=== PATIENT | female | born 1980 | race Caucasian/White ===

== ENCOUNTER 2016-12-20 09:42 | Emergency (ER) | payer OTHER ==
[2016-12-20 09:55] VITALS: BP 116/67; PULSE 70; TEMP 98.3; BMI 28.1
--- NOTE | 2016-12-20 10:59 | PDOC ---
History of Present Illness - General Chief Complaint: Toothache Stated Complaint: ALLERGIC RXN Time Seen by Provider: 12/20/16 10:37 History Source: Patient Exam Limitations: No Limitations - History of Present Illness Initial Comments: 12/20/16 11:05 Chief complaint: Patient wants sutures removed from extraction left upper tooth History of present illness: Patient is a 36-year-old female with no significant medical history here today requesting that sutures be removed from an extraction site at tooth #12 due to irritation of area and tenderness. She reports having the extraction done on with Dr. Timmons, she is to call him to go see him today however he is on vacation. Patient reports taking ibuprofen however she reports it did not help and wants the sutures removed. Patient offered pain medication here does not want. She denies any fever, she denies any chance of . Timing/Duration: getting worse Severity: moderate Associated Symptoms: reports: other (left upper gum area site of extraction from 12/15/16) Past History - Past Medical History Allergies/Adverse Reactions: Allergies Allergy/AdvReac Type Severity Reaction Status Date / Time Penicillins Allergy Verified 12/20/16 09:52 Home Medications: Ambulatory Orders Amoxicillin - [Amoxicillin 500mg Capsule -] 500 mg PO BID 12/20/16 Suicide Attempt (Hx): No Other medical history: denies - Immunization History Immunization Up to Date: Yes - Psycho/Social/Smoking Cessation Hx Anxiety: No Suicidal Ideation: No Smoking History: Current every day smoker Have you smoked in the past 12 months: Yes Number of Cigarettes Smoked Daily: 10 Information on smoking cessation initiated: No Hx Alcohol Use: No Drug/Substance Use Hx: No Substance Use Type: None Review of Systems - Review of Systems Able to Perform ROS?: Yes Constitutional: No: Symptoms Reported HEENTM: Yes: Dental Problems (tooth # [address]) Respiratory: No: Symptoms reported Cardiac (ROS): No: Symptoms Reported ABD/GI: No: Symptoms Reported Musculoskeletal: No: Symptoms Reported Integumentary: No: Symptoms Reported *Physical Exam - Vital Signs Last Vital Signs Temp Pulse Resp BP Pulse Ox 98.3 F 70 20 116/67 99 12/20/16 09:52 12/20/16 09:52 12/20/16 09:52 12/20/16 09:52 12/20/16 09:52 - Physical Exam General Appearance: Yes: Appropriately Dressed HEENT: positive: TMs Normal, Other (tooth extraction tooth # [address], with slight erythema of gum, minimal edema). negative: Pharyngeal Erythema, Tonsillar Exudate, Tonsillar Erythema Neck: negative: Lymphadenopathy (R), Lymphadenopathy (L) Respiratory/Chest: positive: Lungs Clear, Normal Breath Sounds. negative: Chest Tender, Respiratory Distress Cardiovascular: positive: Regular Rhythm, Regular Rate, S1, S2 Integumentary: positive: Normal Color Medical Decision Making - Medical Decision Making 12/20/16 11:08 Patient is a 36-year-old female with no significant medical history here today requesting that sutures be removed from an extraction site at tooth #12 due to irritation of area and tenderness. She reports having the extraction done on with Dr. Timmons, she is to call him to go see him today however he is on vacation. Patient reports taking ibuprofen however she reports it did not help and wants the sutures removed. Patient offered pain medication here does not want. She denies any fever, she denies any chance of . Patient is on amoxcillin does not appear to be having any reaction to it was ordered by her dentist. irritation of suture line extraction site tooth # 12 PLAN: pt. does not want pain medication follow up with dentist 12/20/16 11:09 *DC/Admit/Observation/Transfer Diagnosis at time of Disposition: Gum inflammation, Pain, dental - Discharge Dispostion Disposition: HOME Condition at time of disposition: Stable - Patient Instructions Additional Instructions: Follow Up with a dentist as soon as possible you may call [phone] dental clinic Follow up here if symptoms worsen any fever or facial swelling Patient voiced understanding of discharge instructions and all questions were answered
== END 2016-12-20 11:04 | disposition home or self-care (01) ==
LOC: JERFT 09:42
DX: K05.10 Chronic gingivitis, plaque induced (principal); K08.89 Other specified disorders of teeth and supporting structures; Z88.0 Allergy status to penicillin; F17.210 Nicotine dependence, cigarettes, uncomplicated
CPT/HCPCS: 99281-25